=== PATIENT | female | born 1960 | race Caucasian/White ===

== ENCOUNTER → 2018-04-17 14:17 | Outpatient (CLI) | payer OTHER, SELFPAY ==
--- NOTE | 2018-04-17 14:19 | NVE_ITS ---
Venous Exam Indications: 729.5 Pain in limb. Left foot pain edema IMPRESSIONS 1. There is no evidence of significant Reflux. 2. No evidence of deep or superficial vein thrombosis involving the left lower extremity Left lower extremity venous duplex evaluation. Doppler flow study including spectral analysis, color and rodriguez scale imaging. Location: Vascular laboratory. Patient status: Outpatient. Tables: Venous flow and imaging: + +-------+ + Location Overall Flow properties + +-------+ + Left common femoral Patent Normal phasicity; spontaneous; normal augmentation; compressible + +-------+ + Left saphenofemoral junction Patent Compressible + +-------+ + Left profunda femoral Patent Compressible + +-------+ + Left femoral Patent Normal phasicity; spontaneous; normal augmentation; compressible + +-------+ + Left greater saphenous Patent Normal phasicity; spontaneous; normal augmentation; compressible + +-------+ + Left popliteal Patent Normal phasicity; spontaneous; normal augmentation; compressible + +-------+ + Left posterior tibial Patent Compressible + +-------+ + Left peroneal Patent Compressible + +-------+ + Left gastrocnemius Patent Compressible + +-------+ + Left soleal Patent Compressible + +-------+ + (Report amended ) Electronically signed by: Maciel Venegas [id number]
== END ==
PROVIDERS: PCP Internal Medicine; Visit Provider Nurse Practitioner
DX: M79.89 Other specified soft tissue disorders (principal); M79.672 Pain in left foot
CPT/HCPCS: 93971

== ENCOUNTER 2022-06-12 13:01 | Emergency (ER) | payer MEDICARE, SELFPAY ==
--- NOTE | 2022-06-12 14:36 | EXP.UTC ---
Discharge Plan Disposition Patient Disposition: Home, Self-Care Condition: Good Prescriptions Prescriptions: New benzonatate [benzonatate] 100 mg capsule 100 mg PO TIDP PRN (Reason: Cough) Qty: 30 0RF azithromycin [Zithromax] 250 mg tablet 250 mg PO UD DOSE PK Qty: 6 0RF Rx Instructions: Take two (2) tablets today, then one (1) tablet days #2 thru #5 methylprednisolone 4 mg Tablets,Dose Pack 4 mg PO DIRECTED Qty: 21 0RF No Action fluoxetine 40 MG capsule 40 mg PO DAILY atorvastatin 80 MG tablet 80 mg PO DAILY trazodone 50 MG tablet 50 mg PO DAILY cetirizine 10 MG tablet 10 mg PO DAILY aspirin 325 MG tablet 325 mg PO DAILY diltiazem HCl [Cartia XT] 240 MG capsule,extended release 24hr 240 mg PO DAILY omeprazole 40 MG capsule,delayed release(DR/EC) 40 mg PO NEEDED PRN (Reason: GERD) telmisartan 40 MG tablet 40 mg PO DAILY ranitidine HCl 300 MG capsule 300 mg PO NEEDED PRN (Reason: GERD) montelukast 10 MG tablet 10 mg PO PM epinephrine [EpiPen] 0.3 MG/0.3 ML auto-injector 0.3 mg IJ NEEDED PRN (Reason: ANAPHYLAXIS) hydroxyzine HCl 10 MG tablet 10 mg PO NEEDED PRN (Reason: Anxiety) topiramate 100 MG tablet 100 mg PO DAILY fluticasone propion-salmeterol [Advair HFA] 12 GM HFA aerosol inhaler 12 g inhalation DAILY omega-3 fatty acids-fish oil [Fish Oil] 1 EACH capsule 2,500 mg PO DAILY psyllium husk (bulk) 1,000 GM powder 2,000 g PO DAILY clindamycin HCl 300 MG capsule 300 mg PO Q6H Qty: 28 0RF azithromycin 250 MG tablet 250 mg PO UD DOSE PK Qty: 6 0RF Rx Instructions: Take two (2) tablets today, then one (1) tablet days #2 thru #5 prednisone 20 MG tablet 20 mg PO BID 5 Days Qty: 10 0RF albuterol sulfate 2.5 MG/NEB solution for nebulization 2.5 mg IH Q4-6H PRN (Reason: Shortness Of Breath) Qty: 30 1RF Referrals Follow up/Referrals: Provider,Referral, MD [Primary Care Provider] - See instructions Activity Restrictions/Add. Instructions Additional Instructions/Restrictions: Drink plenty of fluids. Take tylenol or ibuprofen for pain or fever. Take the medications as directed. Follow up with your regular doctor. GO TO THE ER FOR ANY WORSENING SYMPTOMS Clinical Impressions Clinical Impression: Pharyngitis, Otitis media Instructions Patient Instructions: Middle Ear Infection, DI for Pharyngitis/Tonsillopharyngitis -- Adult Discharge ED Provider: Ravi Salazar [facility] [place] HPI General Stated complaint: LT ear pain Time Seen by Provider: 06/12/22 14:36 History of Present Illness Provider Complaint: She states that for the past 2 days she has had sore throat, chills, body aches and low grade fever. Related Data Home Medications Medication Instructions Recorded Confirmed aspirin 325 mg tablet 325 mg PO DAILY HEART HEALTH 04/16/18 04/16/18 atorvastatin 80 mg tablet 80 mg PO DAILY Cholesterol 04/16/18 04/16/18 cetirizine 10 mg tablet 10 mg PO DAILY ALLERGIES 04/16/18 04/16/18 diltiazem HCl 240 mg 240 mg PO DAILY HTN 04/16/18 04/16/18 capsule,extended release 24 hr (Cartia XT) epinephrine 0.3 mg/0.3 mL 0.3 mg IJ NEEDED PRN ANAPHYLAXIS 04/16/18 04/16/18 injection, auto-injector (EpiPen) fluoxetine 40 mg capsule 40 mg PO DAILY Depression 04/16/18 04/16/18 fluticasone propionate 230 12 g inhalation DAILY Asthma 04/16/18 04/16/18 mcg-salmeterol 21 mcg/actuation HFA inhaler (Advair HFA) hydroxyzine HCl 10 mg tablet 10 mg PO NEEDED PRN Anxiety 04/16/18 04/16/18 montelukast 10 mg tablet 10 mg PO PM Asthma 04/16/18 04/16/18 omega-3 fatty acids-fish oil 340 2,500 mg PO DAILY Supplement 04/16/18 04/16/18 mg-1,000 mg capsule (Fish Oil) omeprazole 40 mg capsule,delayed 40 mg PO NEEDED PRN GERD 04/16/18 04/16/18 release psyllium husk (bulk) 100 % powder 2,000 g PO DAILY DIGESTIVE HEALTH 04/16/18 04/16/18 ranitidine
[2022-06-12 14:48] VITALS: BP 154/71; PULSE 64; RESP 17; TEMP 36.7; O2SAT 97; BMI 32.3
[2022-06-12 15:31] VITALS: BP 154/71; PULSE 64; RESP 17; TEMP 36.7
[2022-06-12 16:18] LABS: Adenovirus,PCR Not Detected (NotDetected); Bordetella Pertussis Not Detected (NotDetected); Chlamydophila Pneumoniae, PCR Not Detected (NotDetected); Coronavirus 19, PCR Not Detected (NotDetected); Coronavirus 229E Not Detected (NotDetected); Coronavirus NL63 Not Detected (NotDetected); Coronavirus OC43 Not Detected (NotDetected); Coronovirus HKU1,PCR Not Detected (NotDetected); Human Metapneumovirus Not Detected (NotDetected); Influenza A, PCR Not Detected (NotDetected); Influenza AH1, 2009 Not Detected (NotDetected); Influenza AH1, PCR Not Detected (NotDetected); Influenza AH3,PCR Not Detected (NotDetected); Influenza B, PCR Not Detected (NotDetected); Mycoplasma Pneumoniae, PCR Not Detected (NotDetected); Parainfluenza 1, PCR Not Detected (NotDetected); Parainfluenza 2, PCR Not Detected (NotDetected); Parainfluenza 3, PCR Not Detected (NotDetected); Parainfluenza 4, PCR Not Detected (NotDetected); Respiratory Syncytial Virus Not Detected (NotDetected); Rhinovirus/Enterovirus Not Detected (NotDetected)
== END 2022-06-12 15:34 | disposition home or self-care (01) ==
PROVIDERS: Emergency Provider Nurse Practitioner Family
DX: H66.90 Otitis media, unspecified, unspecified ear (principal); J02.9 Acute pharyngitis, unspecified
CPT/HCPCS: 87581; 87632; 87798; 99212; C9803; G0463; U0003; U0005

== ENCOUNTER 2022-10-21 11:30 | Emergency (ER) | payer MEDICARE, SELFPAY ==
[2022-10-21 11:45] VITALS: BP 152/57; PULSE 80; RESP 22; TEMP 37.1; O2SAT 97; BMI 31.9
--- NOTE | 2022-10-21 11:46 | EXP.UTC ---
Discharge Plan Disposition Patient Disposition: Home, Self-Care Condition: Good Prescriptions Prescriptions: New clindamycin HCl 300 mg capsule 300 mg PO Q8H Qty: 30 0RF sulfamethoxazole-trimethoprim [Bactrim DS] 800-160 mg Tablet 1 tab PO BID Qty: 20 0RF mupirocin 2 % ointment 1 applic topical TID 7 Days Qty: 22 0RF ibuprofen [IBU] 800 mg tablet 800 mg PO Q8HP PRN (Reason: Moderate Pain) Qty: 30 0RF No Action fluoxetine 40 MG capsule 40 mg PO DAILY atorvastatin 80 MG tablet 80 mg PO DAILY trazodone 50 MG tablet 50 mg PO DAILY cetirizine 10 MG tablet 10 mg PO DAILY aspirin 325 MG tablet 325 mg PO DAILY diltiazem HCl [Cartia XT] 240 MG capsule,extended release 24hr 240 mg PO DAILY omeprazole 40 MG capsule,delayed release(DR/EC) 40 mg PO NEEDED PRN (Reason: GERD) telmisartan 40 MG tablet 40 mg PO DAILY ranitidine HCl 300 MG capsule 300 mg PO NEEDED PRN (Reason: GERD) montelukast 10 MG tablet 10 mg PO PM epinephrine [EpiPen] 0.3 MG/0.3 ML auto-injector 0.3 mg IJ NEEDED PRN (Reason: ANAPHYLAXIS) hydroxyzine HCl 10 MG tablet 10 mg PO NEEDED PRN (Reason: Anxiety) topiramate 100 MG tablet 100 mg PO DAILY fluticasone propion-salmeterol [Advair HFA] 12 GM HFA aerosol inhaler 12 g inhalation DAILY omega-3 fatty acids-fish oil [Fish Oil] 1 EACH capsule 2,500 mg PO DAILY psyllium husk (bulk) 1,000 GM powder 2,000 g PO DAILY clindamycin HCl 300 MG capsule 300 mg PO Q6H Qty: 28 0RF azithromycin 250 MG tablet 250 mg PO UD DOSE PK Qty: 6 0RF Rx Instructions: Take two (2) tablets today, then one (1) tablet days #2 thru #5 prednisone 20 MG tablet 20 mg PO BID 5 Days Qty: 10 0RF albuterol sulfate 2.5 MG/NEB solution for nebulization 2.5 mg IH Q4-6H PRN (Reason: Shortness Of Breath) Qty: 30 1RF benzonatate [benzonatate] 100 mg capsule 100 mg PO TIDP PRN (Reason: Cough) Qty: 30 0RF azithromycin [Zithromax] 250 mg tablet 250 mg PO UD DOSE PK Qty: 6 0RF Rx Instructions: Take two (2) tablets today, then one (1) tablet days #2 thru #5 methylprednisolone 4 mg Tablets,Dose Pack 4 mg PO DIRECTED Qty: 21 0RF Referrals Follow up/Referrals: Provider,Referral, MD [Primary Care Provider] - See instructions Activity Restrictions/Add. Instructions Additional Instructions/Restrictions: Keep the wounds clean and dry. Watch the wounds for signs of worsening infection, such as worsening redness, swelling, drainage, fever. etc. Take ibuprofen for pain. We sent in a prescription for ibuprofen 800 mg. Follow up with your regular doctor. Keep in touch with the health department in regards to the health of your cats. GO TO THE ER FOR ANY WORSENING SYMPTOMS OR CONCERNS. Rest the extremity, Elevate the extremity as tolerated while you are resting. I recommend that since this is your hand that is affected, please follow up with an orthopedic physician. I put in a referral to Dr. Frederick (orthopedics) here at this hospital. . I put in a referral but you need to call his office and schedule an appointment. Tendon injuries from cat bites can be serious if they become infected. So, please follow up to make sure this is resolved [place]. Clinical Impressions Clinical Impression: Cat scratch of right hand with infection, Cellulitis of hand, right, Need for Tdap vaccination Instructions Patient Instructions: Cellulitis, Animal Bites, DI for Cat Bite [place]charge ED [place] [facility] [place] General Stated complaint: Possible cat bite RT hand inflammation Time Seen by Provider: 10/21/22 11:46 History of Present Illness Provider Complaint: She states that 3 days ago her 2 indoor cats got in a fight. she tried to separate them but she got clawed by on of them on her right hand. Since then she has had worsening pain, redness an
[2022-10-21 12:50] VITALS: BP 152/57; PULSE 80; RESP 22; TEMP 37.1; O2SAT 97
== END 2022-10-21 12:54 | disposition home or self-care (01) ==
PROVIDERS: Emergency Provider Nurse Practitioner Family
DX: L03.113 Cellulitis of right upper limb (principal); W55.03XA Scratched by cat, initial encounter
CPT/HCPCS: 90471; 90715; 96372; 99212; 99214; G0463

== ENCOUNTER 2022-11-03 17:12 | Emergency (ER) | payer MEDICARE, SELFPAY ==
[2022-11-03 17:13] VITALS: BP 129/76; PULSE 85; RESP 16; TEMP 36.7; O2SAT 97; BMI 28.8
--- NOTE | 2022-11-03 17:18 | PC.NURSE ---
MADELIN ABRAHAM assessing pt.
--- NOTE | 2022-11-03 17:55 | HMH.EDGENADL ---
Discharge Plan Disposition Patient Disposition: Home, Self-Care Prescriptions Prescriptions: No Action clindamycin HCl 300 mg capsule 300 mg PO Q8H Qty: 30 0RF sulfamethoxazole-trimethoprim [Bactrim DS] 800-160 mg Tablet 1 tab PO BID Qty: 20 0RF mupirocin 2 % ointment 1 applic topical TID 7 Days Qty: 22 0RF ibuprofen [IBU] 800 mg tablet 800 mg PO Q8HP PRN (Reason: Moderate Pain) Qty: 30 0RF fluoxetine 40 MG capsule 40 mg PO DAILY atorvastatin 80 MG tablet 80 mg PO DAILY trazodone 50 MG tablet 50 mg PO DAILY cetirizine 10 MG tablet 10 mg PO DAILY aspirin 325 MG tablet 325 mg PO DAILY diltiazem HCl [Cartia XT] 240 MG capsule,extended release 24hr 240 mg PO DAILY omeprazole 40 MG capsule,delayed release(DR/EC) 40 mg PO NEEDED PRN (Reason: GERD) telmisartan 40 MG tablet 40 mg PO DAILY ranitidine HCl 300 MG capsule 300 mg PO NEEDED PRN (Reason: GERD) montelukast 10 MG tablet 10 mg PO PM epinephrine [EpiPen] 0.3 MG/0.3 ML auto-injector 0.3 mg IJ NEEDED PRN (Reason: ANAPHYLAXIS) hydroxyzine HCl 10 MG tablet 10 mg PO NEEDED PRN (Reason: Anxiety) topiramate 100 MG tablet 100 mg PO DAILY fluticasone propion-salmeterol [Advair HFA] 12 GM HFA aerosol inhaler 12 g inhalation DAILY omega-3 fatty acids-fish oil [Fish Oil] 1 EACH capsule 2,500 mg PO DAILY psyllium husk (bulk) 1,000 GM powder 2,000 g PO DAILY clindamycin HCl 300 MG capsule 300 mg PO Q6H Qty: 28 0RF azithromycin 250 MG tablet 250 mg PO UD DOSE PK Qty: 6 0RF Rx Instructions: Take two (2) tablets today, then one (1) tablet days #2 thru #5 prednisone 20 MG tablet 20 mg PO BID 5 Days Qty: 10 0RF albuterol sulfate 2.5 MG/NEB solution for nebulization 2.5 mg IH Q4-6H PRN (Reason: Shortness Of Breath) Qty: 30 1RF benzonatate [benzonatate] 100 mg capsule 100 mg PO TIDP PRN (Reason: Cough) Qty: 30 0RF azithromycin [Zithromax] 250 mg tablet 250 mg PO UD DOSE PK Qty: 6 0RF Rx Instructions: Take two (2) tablets today, then one (1) tablet days #2 thru #5 methylprednisolone 4 mg Tablets,Dose Pack 4 mg PO DIRECTED Qty: 21 0RF Referrals Follow up/Referrals: Provider,Referral, MD [Primary Care Provider] - See instructions Clinical Impressions Clinical Impression: Angio-edema Instructions Patient Instructions: DI for Angioedema Discharge ED Provider: Alejo (ED)[facility] General Adult HPI General Chief complaint: Allergic Reaction Stated complaint: poss alletgic reaction, Time Seen by Provider: 11/03/22 17:15 History of Present Illness HPI narrative: 62-year-old female presents with tongue swelling. She says that she has had this issue before and had to receive epinephrine injections. She has history of allergic reactions. She says she has a scratchy throat no difficulty breathing at this time. No other abdominal pain or other issues. No nausea or vomiting. No headache or dizziness. Related Data Home Medications Medication Instructions Recorded Confirmed aspirin 325 mg tablet 325 mg PO DAILY HEART HEALTH 04/16/18 04/16/18 atorvastatin 80 mg tablet 80 mg PO DAILY Cholesterol 04/16/18 04/16/18 cetirizine 10 mg tablet 10 mg PO DAILY ALLERGIES 04/16/18 04/16/18 diltiazem HCl 240 mg 240 mg PO DAILY HTN 04/16/18 04/16/18 capsule,extended release 24 hr (Cartia XT) epinephrine 0.3 mg/0.3 mL 0.3 mg IJ NEEDED PRN ANAPHYLAXIS 04/16/18 04/16/18 injection, auto-injector (EpiPen) fluoxetine 40 mg capsule 40 mg PO DAILY Depression 04/16/18 04/16/18 fluticasone propionate 230 12 g inhalation DAILY Asthma 04/16/18 04/16/18 mcg-salmeterol 21 mcg/actuation HFA inhaler (Advair HFA) hydroxyzine HCl 10 mg tablet 10 mg PO NEEDED PRN Anxiety 04/16/18 04/16/18 montelukast 10 mg tablet 10 mg PO PM Asthma 04/16/18 04/16/18 omega-3 fatty acids-fish oil 340 2,500 mg PO D
--- NOTE | 2022-11-03 17:58 | PC.NURSE ---
MADELIN ABRAHAM reassessing pt.
[2022-11-03 20:00] VITALS: PULSE 74; O2SAT 95
[2022-11-03 20:30] VITALS: PULSE 73; O2SAT 97
[2022-11-03 20:45] VITALS: PULSE 71; O2SAT 96
[2022-11-03 21:00] VITALS: PULSE 73; O2SAT 95
[2022-11-03 22:22] VITALS: BP 145/79; PULSE 81; RESP 13; TEMP 36.7; O2SAT 99
== END 2022-11-03 22:26 | disposition home or self-care (01) ==
PROVIDERS: Emergency Provider Emergency Medicine
DX: T78.3XXA Angioneurotic edema, initial encounter (principal)
CPT/HCPCS: 96361; 96372; 96374; 99284

== ENCOUNTER 2023-01-12 15:08 | Emergency (ER) | payer MEDICARE, SELFPAY ==
[2023-01-12 15:09] VITALS: BP 138/86; PULSE 71; RESP 18; TEMP 37.1; O2SAT 97; BMI 33.0
--- NOTE | 2023-01-12 15:47 | EXP.UTC ---
Discharge Plan Disposition Patient Disposition: Home, Self-Care Prescriptions Prescriptions: No Action clindamycin HCl 300 mg capsule 300 mg PO Q8H Qty: 30 0RF sulfamethoxazole-trimethoprim [Bactrim DS] 800-160 mg Tablet 1 tab PO BID Qty: 20 0RF mupirocin 2 % ointment 1 applic topical TID 7 Days Qty: 22 0RF ibuprofen [IBU] 800 mg tablet 800 mg PO Q8HP PRN (Reason: Moderate Pain) Qty: 30 0RF fluoxetine 40 MG capsule 40 mg PO DAILY atorvastatin 80 MG tablet 80 mg PO DAILY trazodone 50 MG tablet 50 mg PO DAILY cetirizine 10 MG tablet 10 mg PO DAILY aspirin 325 MG tablet 325 mg PO DAILY diltiazem HCl [Cartia XT] 240 MG capsule,extended release 24hr 240 mg PO DAILY omeprazole 40 MG capsule,delayed release(DR/EC) 40 mg PO NEEDED PRN (Reason: GERD) telmisartan 40 MG tablet 40 mg PO DAILY ranitidine HCl 300 MG capsule 300 mg PO NEEDED PRN (Reason: GERD) montelukast 10 MG tablet 10 mg PO PM epinephrine [EpiPen] 0.3 MG/0.3 ML auto-injector 0.3 mg IJ NEEDED PRN (Reason: ANAPHYLAXIS) hydroxyzine HCl 10 MG tablet 10 mg PO NEEDED PRN (Reason: Anxiety) topiramate 100 MG tablet 100 mg PO DAILY fluticasone propion-salmeterol [Advair HFA] 12 GM HFA aerosol inhaler 12 g inhalation DAILY omega-3 fatty acids-fish oil [Fish Oil] 1 EACH capsule 2,500 mg PO DAILY psyllium husk (bulk) 1,000 GM powder 2,000 g PO DAILY clindamycin HCl 300 MG capsule 300 mg PO Q6H Qty: 28 0RF azithromycin 250 MG tablet 250 mg PO UD DOSE PK Qty: 6 0RF Rx Instructions: Take two (2) tablets today, then one (1) tablet days #2 thru #5 prednisone 20 MG tablet 20 mg PO BID 5 Days Qty: 10 0RF albuterol sulfate 2.5 MG/NEB solution for nebulization 2.5 mg IH Q4-6H PRN (Reason: Shortness Of Breath) Qty: 30 1RF benzonatate [benzonatate] 100 mg capsule 100 mg PO TIDP PRN (Reason: Cough) Qty: 30 0RF azithromycin [Zithromax] 250 mg tablet 250 mg PO UD DOSE PK Qty: 6 0RF Rx Instructions: Take two (2) tablets today, then one (1) tablet days #2 thru #5 methylprednisolone 4 mg Tablets,Dose Pack 4 mg PO DIRECTED Qty: 21 0RF Referrals Follow up/Referrals: Kieran Taylor MD [Primary Care Provider] - See instructions Activity Restrictions/Add. Instructions Additional Instructions/Restrictions: *weight bearing as tolerated *RICE, Rest the extremity, Ice 15-20 minutes 3-4 times daily, Compress- wear the jesse wrap as discussed as much as possible to help reduce swelling and pain, Elevate the extremity when at rest *Jesse wrap is for support and help control swelling, use it except in the shower. Be sure that is not to tight but not to loose either *Elevate when resting? *Over the counter Ibuprofen 600-800mg every 6-8 hours as needed for pain an inflammation. If need something more can take Tylenol in between doses of Ibuprofen to help Immediately follow up with your family doctor for new or worsening of symptoms, or no noticeable improvement over the next 3-5 days Clinical Impressions Clinical Impression: Lower extremity pain Qualifiers: Laterality: left Qualified Code(s): M79.605 - Pain in left leg Instructions Patient Instructions: DI for Plantar Fasciitis, Plantar Fasciitis, DI for Varicose Veins Discharge ED Provider: Chen Disla [facility] General Stated complaint: pain and swelling left leg Mode of Arrival: Ambulatory Source of Information: Patient Limitations: No Limitations Time Seen by Provider: 01/12/23 15:47 Description of Symptoms (Recalled from Triage Doc. by RN): Patient reports swelling and pain from her left foot to her knee for 3 days. denies injury. HEENT Symptoms (Recalled from RN notes): No Resp Symptoms (Recalled from RN notes): No Skin Symptoms (Recalled from RN notes): No MS Symptoms (Recalled from RN notes): Yes Functional Status (Reca
--- NOTE | 2023-01-12 15:54 | XR_ITS ---
PROCEDURE INFORMATION: Exam: XR Left Ankle Exam date and time: 01/12/2023 3:53 PM Age: 62 years old Clinical indication: Pain; Ankle; Left; Additional info: Pain and swelling TECHNIQUE: Imaging protocol: Radiologic exam of the left ankle. Views: 3 or more views. COMPARISON: CR [facility] XR ankle LT min 3V 04/16/2018 9:33 PM FINDINGS: Bones/joints: Normal. Soft tissues: Normal. IMPRESSION: No acute findings.
--- NOTE | 2023-01-12 15:54 | XR_ITS ---
PROCEDURE INFORMATION: Exam: XR Left Foot Exam date and time: 01/12/2023 3:51 PM Age: 62 years old Clinical indication: Pain; Foot; Left; Additional info: Pain and swelling TECHNIQUE: Imaging protocol: Radiologic exam of the left foot. Views: 3 or more views. COMPARISON: CR [facility] XR ankle LT min 3V 04/16/2018 9:33 PM FINDINGS: Bones/joints: Mild hallux valgus. Mild degenerative changes of metatarsophalangeal and interphalangeal joints. Mild degenerative changes of the tarsometatarsal joint. No erosive changes. Mild osteopenia. Intact cortices. Soft tissues: Normal. Other findings: No effusion. IMPRESSION: No acute radiographic findings identified. Degenerative changes. Hallux valgus.
[2023-01-12 16:39] VITALS: BP 138/86; PULSE 71; RESP 18; TEMP 37.1; O2SAT 97
== END 2023-01-12 16:40 | disposition home or self-care (01) ==
PROVIDERS: Emergency Provider Nurse Practitioner; PCP Internal Medicine
DX: M79.605 Pain in left leg (principal)
CPT/HCPCS: 73610; 73630; 99212; 99214; G0463

== ENCOUNTER → 2023-01-13 11:11 | Outpatient (CLI) | payer MEDICARE, SELFPAY ==
--- NOTE | 2023-01-13 | CA_ITS ---
FINAL REPORT TECHNIQUE: Color Doppler, duplex Doppler and compression sonography of the left lower extremity deep venous systems was performed. CLINICAL HISTORY: plantar fascitis, lt posterior knee pain. FINDINGS: There is no evidence of deep venous thrombosis from the level of the groin to the calf. The veins are patent and compressible. IMPRESSION: No evidence of deep venous thrombosis left lower extremity. Reviewed, Interpreted and Dictated by Eladio Barger III, MD Transcribed by Maida Prieto Authenticated and [facility]
== END ==
PROVIDERS: PCP Internal Medicine; Visit Provider Nurse Practitioner
DX: M79.662 Pain in left lower leg (principal); R60.0 Localized edema
CPT/HCPCS: 93971

== ENCOUNTER 2024-06-24 12:21 | Emergency (ER) | payer MEDICARE, SELFPAY ==
--- NOTE | 2024-06-24 13:00 | ED_ITS ---
Discharge Plan Disposition Patient Disposition: Home, Self-Care Condition: Good Prescriptions Prescriptions: New Proair Digihaler 90 mcg/actuation aero powdr breath act w/sensor 2 inh inhalation Q6H 30 Days Qty: 1 0RF azithromycin [Zithromax] 250 mg tablet 250 mg PO UD DOSE PK Qty: 6 0RF Rx Instructions: Take two (2) tablets today, then one (1) tablet days #2 thru #5 benzonatate 100 mg capsule 100 mg PO TIDP PRN (Reason: Cough) Qty: 30 0RF methylprednisolone 4 mg Tablets,Dose Pack 4 mg PO DIRECTED 6 Days Qty: 21 0RF Rx Instructions: Take 1 pack as directed for 6 days No Action venlafaxine 37.5 mg tablet 37.5 mg PO DAILY Patient Comments: TAKE 1 TABLET BY MOUTH EVERY MORNING diltiazem HCl 120 mg capsule,extended release 24hr 120 mg PO DAILY Patient Comments: TAKE 1 CAPSULE (120 MG TOTAL) BY MOUTH DAILY. atorvastatin 80 MG tablet 80 mg PO DAILY trazodone 50 MG tablet 50 mg PO DAILY telmisartan 40 MG tablet 40 mg PO DAILY albuterol sulfate 2.5 MG/NEB solution for nebulization 2.5 mg IH Q4-6H PRN (Reason: Shortness Of Breath) Qty: 30 1RF Referrals Follow up/Referrals: Kieran Taylor MD [Primary Care Provider] - See instructions Activity Restrictions/Add. Instructions Additional Instructions/Restrictions: Drink plenty of fluids. Take tylenol or ibuprofen for pain or fever. Take the medications as directed. Follow up with your regular doctor. GO TO THE ER FOR ANY WORSENING SYMPTOMS Clinical Impressions Clinical Impression: Asthma exacerbation Instructions Patient Instructions: Asthma -- Adult, DI for Asthma -- Adult Print Language Print Language: German Discharge ED Provider: Ravi Salazar [facility] General Stated complaint: asthma attack Time Seen by Provider: 06/24/24 13:00 Related Data Home Medications ?Medication ?Instructions ?Recorded ?Confirmed atorvastatin 80 mg tablet 80 mg PO DAILY Cholesterol 04/16/18 06/24/24 telmisartan 40 mg tablet 40 mg PO DAILY HTN 04/16/18 06/24/24 trazodone 50 mg tablet 50 mg PO DAILY SLEEP 04/16/18 06/24/24 diltiazem HCl 120 mg 120 mg PO DAILY 06/24/24 06/24/24 capsule,extended release 24 hr venlafaxine 37.5 mg tablet 37.5 mg PO DAILY 06/24/24 06/24/24 Previous Rx's ?Medication ?Instructions ?Recorded albuterol sulfate 2.5 mg/3 mL 2.5 mg (3 mL) IH Q4-6H PRN 04/10/19 (0.083 %) solution for nebulization Shortness Of Breath #30 neb albuterol sulfate 90 mcg/actuation 2 inh inhalation Q6H wheezing 30 06/24/24 breath activated powder days #1 ea inhaler,sensor (Proair Digihaler) azithromycin 250 mg tablet 250 mg PO UD DOSE PK #6 tabs 06/24/24 (Zithromax) benzonatate 100 mg capsule 100 mg PO TIDP PRN Cough #30 caps 06/24/24 methylprednisolone 4 mg tablets in 4 mg PO DIRECTED 6 days #21 tabs 06/24/24 a dose pack Allergies Allergy/AdvReac Type Severity Reaction Status Date / Time Beef Containing Products Allergy Anaphylaxis Verified 06/24/24 13:22 brimonidine (From Alphagan P) Allergy Anaphylaxis Verified 06/24/24 13:22 Penicillins Allergy Anaphylaxis Verified 06/24/24 13:22 pork derived (porcine) Allergy Anaphylaxis Verified 06/24/24 13:22 [facility] Disclaimer: The information contained in this section may have been updated after the patient was seen, as this information can be updated by other users. Social History Smoking Status: Never smoker alcohol intake: never current occupational status: other Travel in the last 8 weeks: None Have you lived/traveled outside [place] in past 30 days?: No Contact w/someone who lives/traveled outside [place] past 30 days?: No Exposure to someone with infectious disease in past 14 days?: No Do you have a fever (greater than 100.4 F or 38 C)?: No Have you tested positive for COVID-19: No Exposed to someone with COVID-19 in past 14 days?: No Do you have a sore throat?: No Do you have a cough?: No Do you have any weakness?: No Do you have any diarrhea?: No Are you experiencing any unusual bleeding?: No Do you have any muscle aches/pain?: No Do you have any abdominal pain?: No Are you experiencing loss of taste or smell?: No ROS Obtained: Yes All systems reviewed & no additional complaints except as documented Constitutional Constitutional: Reports poor appetite Eyes Eyes: Reports system reviewed and no additional complaints, except as documented ENT Ears, Nose, Mouth, and Throat: Reports as per HPI Cardiovascular Cardiovascular: Reports system reviewed and no additional complaints, except as documented and Denies chest pain Respiratory Respiratory: Denies shortness of breath, Reports chest congestion, Reports cough, Denies stridor and Denies wheezing Gastrointestinal Gastrointestingal: Reports system reviewed and no additional complaints, except as documented; Denies abdominal pain, diarrhea or vomiting Musculoskeletal Musculoskeletal: Reports system reviewed and no additional complaints, except as documented and Denies arthralgias Integumentary/Breasts Skin/Breast: Reports system reviewed and no additional complaints, except as documented and Denies rash Neurologic Neurologic: Denies paresthesias Allergic/Immunologic Allergic/Immunologic: Denies wheezing Physical Exam General General appearance: alert and in no apparent distress Eye Eye exam: Present normal appearance, PERRL and EOMI ENT ENT exam: Present mucous membranes moist and normal external ear exam Expanded ENT Exam External ear exam: Present normal external inspection TM/Canal exam: Bilateral TM: erythema and bulging Nose exam: Absent sinus tenderness Nasal speculum exam: Bilateral: normal Mouth exam: Present normal external inspection; Absent drooling Teeth exam: Present normal inspection Throat exam: Present tonsillar erythema and tonsillomegaly Neck Neck exam: Present normal inspection, full ROM and trachea midline; Absent tenderness, lymphadenopathy or thyromegaly Chest Chest inspection: Present normal inspection and symmetric chest wall rise; Absent tenderness or rash Respiratory Respiratory exam: Present normal lung sounds bilaterally; Absent respiratory distress, wheezes, stridor or accessory muscle use Cardiovascular Cardiovascular exam: Present regular rate, normal rhythm and normal heart sounds Abdominal Exam Abdominal exam: Present soft; Absent distention, tenderness, guarding, rebound or rigidity Extremities Exam Extremities exam: Present normal inspection, full ROM and normal capillary refill; Absent tenderness or calf tenderness Back Exam Back exam: Present normal inspection and full ROM; Absent tenderness Neurological Exam Neurological exam: Present alert and oriented X3 Psychiatric Psychiatric exam: Present normal affect and normal mood Skin Skin exam: Present warm, dry, intact and normal color Lymphatic Lymphatic Findings: no adenopathy Medical Decision Making Medical Records Medical records reviewed: No I reviewed the patient's medical records. Screening: Per USPSTF and CDC recommendations, given the prevalence of disease in our region, it is our hospital?s policy to screen for HIV and viral Hepatitis for all patients aged 18 and over and those with ongoing risk factors. [place] Inquiry Pt receiving controlled substance: No Lab Data Lab results reviewed: Yes I reviewed the patient's lab results.
[2024-06-24 13:20] VITALS: BP 143/63; PULSE 75; RESP 18; TEMP 36.6; O2SAT 95; BMI 31.9
[2024-06-24 13:57] VITALS: BP 143/63; PULSE 75; RESP 18; TEMP 36.6
== END 2024-06-24 13:58 | disposition home or self-care (01) ==
PROVIDERS: Emergency Provider Nurse Practitioner Family; PCP Internal Medicine
DX: J45.901 Unspecified asthma with (acute) exacerbation (principal); R05.9 Cough, unspecified; R63.8 Other symptoms and signs concerning food and fluid intake
CPT/HCPCS: 99212; G0381